=== PATIENT | female | born 1955 | race Caucasian/White ===

== ENCOUNTER 2016-11-11 11:03 | Inpatient (IN) | payer BC ==
[~2016-11-11] VITALS: Ht 172.7 cm; Wt 90.4 kg
[2016-11-21] MEDS ORDERED: ATOR40TA16 PO (09:59)
[2016-11-21] MEDS ORDERED: FERR240T PO (10:20)
[2016-11-21] MEDS ORDERED: COLA100C3 PO (10:20)
[2016-11-21] MEDS ORDERED: CLON1TAB PO (10:20)
[2016-11-21] MEDS ORDERED: AMIT50TA3 PO (10:20)
[2016-11-21] MEDS ORDERED: REGL10TA5 PO (10:20)
[2016-11-21] MEDS ORDERED: GABA100C4 PO ×2 (10:20)
[2016-11-21] MEDS ORDERED: HYDR-3583 PO (10:20)
[2016-11-21] MEDS ORDERED: ZANA4CAP PO (10:20)
[2016-11-21] MEDS ORDERED: RANI300T PO (10:20)
[2016-11-21] MEDS ORDERED: PLAQ200T PO (10:20)
[2016-11-21] MEDS ORDERED: LEXA20TA PO (10:20)
[2016-11-21] MEDS ORDERED: LISI-519 PO (10:20)
[2016-11-21] MEDS ORDERED: ASPI1TAB69 PO (13:08)
[2016-11-25 06:36] VITALS: BP 127/69; PULSE 79; RESP 20; TEMP 98.9; O2SAT 100
[2016-11-25] MEDS ORDERED: INSULIN HUMAN REGULAR 1,000 UNITS/10 ML VIAL SQ PRN (06:45)
[2016-11-25] MEDS ORDERED: EXPAREL PERI-ARTICULAR INJECTION (TOTAL VOL. 60 ML) P-ARTICULR SCH ×2 (06:45)
[2016-11-25] MEDS ORDERED: VANCOMYCIN 1000 MG/NS 250 ML (for <70 kg) IV SCH ×2 (06:45)
[2016-11-25] MEDS ORDERED: LACTATED RINGER'S 1000 ML IV SCH (06:45)
[2016-11-25] MEDS ORDERED: METOPROLOL TARTRATE 25 MG TAB PO PRN (06:45)
[2016-11-25] MEDS ORDERED: SODIUM CHLORID 0.9% 500 ML IV SCH (06:45)
[2016-11-25] MEDS: POVIDONE IODINE 7.5% SCRUB 118 ML BOTTLE TOP SCH (06:45)
[2016-11-25] MEDS ORDERED: TRANEXAMIC ACID INJ 857 MG in SODIUM CHLORIDE 0.9% INJ 100 ML IV SCH (07:00)
--- NOTE | 2016-11-25 07:21 | MH ---
cc: SCOT FOURNIER DATE OF ADMISSION: 11/25/2016 ADMISSION DIAGNOSIS Left knee osteoarthritis. HISTORY This is a 61-year-old female with significant left knee pain. Investigative studies show evidence of extensive arthritis of the left knee. Despite conservative care the patient is painful and symptomatic. She presents for surgical treatment. PAST MEDICAL HISTORY, SOCIAL HISTORY, FAMILY HISTORY, REVIEW OF SYSTEMS See attached notes. PHYSICAL EXAMINATION General: A 61-year-old female in moderate distress with her left knee. HEENT: Normocephalic, atraumatic. Pupils equal, round, reactive to light and accommodation. Extraocular motions intact. Neck: Supple. Chest: Clear. Heart: Regular rate and rhythm. Abdomen: Soft, nontender with normoactive bowel sounds. Musculoskeletal Examination: Left knee with pain range of motion especially with flexion and extension. Moderate deformity is seen. Neurologic and vascular examination is within normal limits. IMPRESSION Osteoarthritis left knee PLAN Left total knee replacement plasty CONSENT The risks of surgery include infection, bleeding, loss of motion, continued pain, need for further surgery, neurologic or vascular injury. The patient understands these issues and wishes to press on with the surgery as outlined above. MD LAMINE Platt/GREGORIA /10:45 PM /7:15 AM
[2016-11-25] MEDS ORDERED: GENTAMICIN SULFATE 80 MG/2 ML VIAL ONE (07:27)
[2016-11-25] MEDS ORDERED: MIDAZOLAM HCL 5 MG/5 ML VIAL ONE (07:37)
[2016-11-25] MEDS ORDERED: ceFAZolin 2 GM PREMIX 50 ML IV SCH (07:45)
[2016-11-25] MEDS: LACTATED RINGER'S 1000 ML INJ 1,000 ML IV SCH ×2 (10:06→20:58)
[2016-11-25] MEDS ORDERED: MISCELLANEOUS PHARMACY INFORMATION XX ONE (10:15)
[2016-11-25] MEDS ORDERED: TEMAZEPAM 15 MG CAP PO PRN (10:15)
[2016-11-25] MEDS ORDERED: MISCELLANEOUS NURSING INFORMATION XX PRN (10:15)
[2016-11-25] MEDS ORDERED: SODIUM CHLORIDE 0.9% FLUSH 5 ML FLUSH IVF PRN (10:15)
--- NOTE | 2016-11-25 10:31 | PD.OP ---
cc: Daryl Engle MD Operative Report Date of Surgery: Nov 25, 2016 Preoperative Diagnosis: Osteoarthritis left knee. Valgus deformity, left knee Postoperative Diagnosis: Same Procedure: Left total knee replacement arthroplasty Anesthesia: Spinal with block Surgeon: Daryl Engle Planer Tailer(s): BALBIR Gutierrez Operation and Findings: EBL: 150 cc INDICATION: This patient presents with long-standing arthritis of the knee. Attachment record documents conservative measures. The patient now presents for surgical treatment. NOTE: Jaycee Gutierrez PA-C was present for the entire surgical procedure as my farm assistant. In my medical opinion her skill and care was necessary for proper management of this patient. TOURNIQUET TIME: 54 minutes COMPANY: [employer] FEMUR: Size 3, cruciate retaining TIBIA: Size 3, fixed bearing PATELLA: 35 mm POLYETHYLENE INSERT: 11 mm PROCEDURE: This patient was brought the operating room and anesthetized in the supine position. The patient was positioned supine on the table. The tourniquet was placed about the thigh, and the leg was scrubbed with alcohol followed by Hibiclens followed by ChloraPrep and draped sterilely. A timeout was done, and antibiotics were given. After exsanguination the tourniquet was inflated to 250 mmHg. An anterior incision was made and a median parapatellar arthrotomy was performed. The patella was released laterally and subluxed allowing freehand cut of the patella which was then sized. A metal cap was placed over the exposed patellar surface for protection. A maritime pilot hole was placed in the distal femur allowing a 5 valgus cut removing 10 mm from the distal femur. Anterior posterior and chamfer cuts were made. The posterior stabilize osteotomy was made. The attention was directed to the tibia. Retractors were positioned. The external alignment guide was used allowing the lateral tibia to be used as referencing guide and cut utilizing an oscillating saw taking care to avoid any injury to the surrounding soft tissues. This was sized properly. Trial reduction showed that the insert fit nicely. The patient had range of motion extension 0 flexion 125. A medial release not necessary. The bony surfaces prepared. On the back table 2 packets of methylmethacrylate were mixed. The components were cemented. Excess cement was removed. The tourniquet let down and hemostasis was controlled. The final plastic insert was inserted. Range of motion was the same as previously noted. A drain was brought through a separate stab incision. The arthrotomy was repaired with interrupted #1 Vicryl suture, subcutaneous tissue 2-0 Vicryl suture and skin with metallic ruben A sterile dressing was applied. Sponge counts, needle counts and instrument counts were all correct. The patient tolerated procedure well and was taken to recovery in satisfactory condition. FINDINGS: There was evidence of severe lateral compartment arthritis with a valgus deformity. There was a significant erosion of the tibia posterior and laterally. The final solution had excellent balancing in flexion and extension. No complication was appreciated. Daryl Engle MD Nov 25, 2016 10:31
[2016-11-25] MEDS ORDERED: OXYC1TAB63 PO (10:33)
[2016-11-25] MEDS ORDERED: XARE10TA PO (10:33)
[2016-11-25] MEDS ORDERED: Post-op Orders (for Pharmacy) MISC XX ONE (10:35)
[2016-11-25] MEDS ORDERED: DO NOT ADM ANY ANTICOAGULANT DRUGS XX PRN (11:00)
[2016-11-25] MEDS ORDERED: *MEPERIDINE 25 MG INJ VIAL PERIprocedural Use ONLY ONE (11:00)
[2016-11-25] MEDS ORDERED: ROPIVACAINE 0.5% PF INJ 30 ML VIAL NB ONE (11:09)
[2016-11-25] MEDS ORDERED: DEXAMETHASONE SOD PHOS PF 10 MG/ML VIAL IV ONE (11:09)
--- NOTE | 2016-11-25 11:14 | RADRPT ---
EXAM DATE/TIME: 11/25/2016 10:47 [facility] COMPARISON: No previous studies available for comparison. INDICATIONS : Post op left knee replacement. MEDICAL HISTORY : None. SURGICAL HISTORY : None. ENCOUNTER: Initial ACUITY: 1 day PAIN SCORE: 0/10 LOCATION: Left knee. FINDINGS: AP and lateral views of the left knee demonstrate changes consistent with recent total knee arthropla sty with metallic hardware in place in the distal femur and proximal tibia. There is a radiolucent pa tellar component. Skin ruben are present anteriorly. There is soft tissue gas present, as expected. A surgical drain is in place. CONCLUSION: Expected postsurgical changes are present following total knee arthroplasty. Stephan Santos MD on November 25, 2016 at 11:12 Board Certified Radiologist. This report was verified electronically.
[2016-11-25 11:36] VITALS: BP 142/62; PULSE 67; RESP 19; TEMP 95.2; O2SAT 100
[2016-11-25] MEDS: oxyCODONE/ACETAMINOPHEN 5 MG/325 MG TAB PO PRN ×3 (11:38→23:53)
[2016-11-25] MEDS ORDERED: LACTATED RINGER'S 1000 ML INJ 1,000 ML IV ONE (12:22)
[2016-11-25] MEDS ORDERED: ONDANSETRON HCL 4 MG/2 ML VIAL IV PUSH ONE (12:22)
[2016-11-25] MEDS ORDERED: PROPOFOL 200 MG/20 ML AMP IV ONE (12:22)
[2016-11-25] MEDS ORDERED: CPMMACHINE (12:36)
[2016-11-25] MEDS ORDERED: WALKER WHEELS/F1 MIS (12:37)
[2016-11-25] MEDS ORDERED: MISC-163 (12:37)
--- NOTE | 2016-11-25 12:37 | HHI.DCPOC ---
Discharge Care Plan Diagnosis: (1) Left knee pain (2) Osteoarthritis of left knee Your Health Problems Are: Incision/Drains Goals to Promote Your Health * To prevent worsening of your condition and complications * To maintain your health at the optimal level Directions to Meet Your Goals Take your medications as prescribed Follow your dietary instruction Follow activity as directed Keep your appointments as scheduled Take your immunizations and boosters as scheduled If your symptoms worsen call your PCP, if no PCP go to Urgent Care Center or Emergency Room Smoking is Dangerous to Your Health. Avoid second hand smoke Call the 24-hour hour crisis hotline for domestic abuse at Rashida Champagne Nov 25, 2016 12:37
--- NOTE | 2016-11-25 12:38 | HHI.DS ---
Discharge Summary Admission Date Nov 25, 2016 at 05:38 Discharge Date: Nov 28, 2016 Admitting Diagnosis see below Diagnosis: (1) Left knee pain Diagnosis: Principal (2) Osteoarthritis of left knee Diagnosis: Principal (3) Postoperative anemia due to acute blood loss Diagnosis: Secondary Procedures Left total knee arthroplasty Brief History This is a 61 year old female patient with a multiple year history of left knee pain. She sought out medical treatment some time ago and imaging studies were performed. She was found to have moderate osteoarthritis of her left knee. Conservative measures were performed including use of medications, therapy and injections. She continued to decline so surgical treatment was recommended and she elected to move forward with total knee arthroplasty. Hospital Course Surgical treatment was performed on the day of admission without complications. She recovered well in PACU and was transferred to the orthopaedic floor. Pain was controlled with IV and oral medications. DVT prophylaxis was initiated pod#1. She was compliant with physical therapy and all precautions. She did have a slight hypotensive episode pod#1 but that resolved. After 3 days she was found to be stable with mild postop anemia and discharged to [facility] facility with instruction to continue PT and to pursue a high fiber diet for 5 days. Pt Condition on Discharge: Stable Discharge Disposition: Discharge to SNF Discharge Instructions Diet Instructions: As Tolerated, No Restrictions, High Fiber Diet Activities You Can Perform: Weight Bearing as [place] Activities to Avoid: Strenuous Activity Additional Activity Instruc.: TKA protocol New Medications: 3-in-1 Bedside Toilet (3-in-1 Bedside Toilet) 1 Mis Mis 1 EA .ROUTE DIRECTED #1 EA CPM-Continuous Passive Motion Machine (CPM-Continuous Passive Motion Machine) 1 Ea Device 1 EA .ROUTE DIRECTED #1 Ref 0 EA Walker with Front Wheels (Walker with Front Wheels) 1 Mis Mis 1 EA .ROUTE DIRECTED #1 Ref 0 EA Oxycodone-Acetaminophen (Oxycodone-Acetaminophen) 5-325 mg Tab 1 TAB PO Q4H PRN PAIN LESS THAN 5 ON SCALE #50 TAB Rivaroxaban (Xarelto) 10 Mg Tab 10 MG PO Q24H Prevent Blood Clot #15 TAB Continued Medications: Amitriptyline (Amitriptyline) 50 Mg Tab 50 MG PO HS Control Depression #30 Ref 0 TAB Aspirin (Aspirin) 81 Mg Tabdr 81 MG PO DAILY TAB Atorvastatin (Atorvastatin) 40 Mg Tab 40 MG PO DAILY Cholesterol Management #30 Ref 0 TAB Clonazepam (Clonazepam) 1 Mg Tab 1 MG PO TID #90 Ref 0 TAB Docusate Sodium (Colace) 100 Mg Cap 100 MG PO BID #60 Ref 0 CAP Escitalopram (Lexapro) 20 Mg Tab 20 MG PO DAILY #30 Ref 0 TAB Ferrous Gluconate (Ferrous Gluconate) 240 Mg Tab Unknown Dose PO BID Nutritional Supplement #30 Ref 0 TAB Gabapentin (Gabapentin) 100 Mg Cap 100 MG PO HS #30 Ref 0 CAP Gabapentin (Gabapentin) 100 Mg Cap 200 MG PO BID #60 Ref 0 CAP Hydrocodone-Acetaminophen (Hydrocodone-Acetaminophen) 10-325 mg Tab 1 TAB PO Q6H PRN PAIN Ref 0 TAB Hydroxychloroquine (Plaquenil) 200 Mg Tab Unknown Dose PO DAILY Take with food #60 Ref 0 TAB Lisinopril (Lisinopril) 5 Mg Tab 5 MG PO DAILY Blood Pressure Management #30 Ref 0 TAB Metoclopramide (Reglan) 10 Mg Tab 10 MG PO DAILY #120 Ref 0 TAB Ranitidine (Ranitidine) 300 Mg Tab 300 MG PO BID Heartburn Management #30 Ref 0 TAB Tizanidine (Zanaflex) 4 Mg Cap 4 MG PO TID Muscle Spasm Ref 0 CAP Rashida Champagne Nov 25, 2016 12:38
[2016-11-25] MEDS: clonazePAM 1 MG TAB PO SCH ×2 (13:02→18:17)
[2016-11-25] MEDS: MORPHINE SULFATE 8 MG/ML INJ IM PRN ×2 (14:10→21:09)
[2016-11-25 16:00] VITALS: BP 107/61; PULSE 79; RESP 16; TEMP 97.8; O2SAT 96
[2016-11-25 20:15] VITALS: BP 143/68; PULSE 76; RESP 19; TEMP 97.4; O2SAT 96
[2016-11-25] MEDS: FAMOTIDINE 20 MG TAB PO SCH (20:52)
[2016-11-25] MEDS: MAGNESIUM HYDROXIDE SUSP 30 ML CUP PO SCH (20:53)
[2016-11-25] MEDS: AMITRIPTYLINE HCL 50 MG TAB PO SCH (20:53)
[2016-11-25] MEDS: GABAPENTIN 100 MG CAP PO SCH (20:53)
[2016-11-25] MEDS: SENNOSIDES 8.6 MG TAB PO SCH (20:54)
[2016-11-25] MEDS: SODIUM CHLORIDE 0.9% FLUSH 5 ML FLUSH IVF SCH (20:55)
[2016-11-26] VITALS (8 sets, daily range): BP systolic 87–134; BP diastolic 45–85; PULSE 73–92; RESP 18–19; TEMP 95.8–98; O2SAT 93–98
[2016-11-26] MEDS: oxyCODONE/ACETAMINOPHEN 5 MG/325 MG TAB PO PRN ×5 (04:16→21:22)
[2016-11-26 07:01] LABS: HEMATOCRIT 26.6 % (35.0-46.0); REVIEW FLAG FINAL
--- NOTE | 2016-11-26 07:47 | PD.ORT.PN ---
Subjective Subjective Remarks Moderate left knee pain. Most sensation returned after block. Somehwat groggy. Mild nausea. No other complaints or concerns. No CP or SOB. Has no family support at home so likely SNF [postop. Objective Vitals Vital Signs Date Time Temp Pulse Resp B/P Pulse Ox O2 Delivery O2 Flow Rate FiO2 11/26/16 07:31 97.7 82 18 110/56 95 11/26/16 04:13 98.0 81 18 103/54 96 11/26/16 00:14 97.2 86 19 106/62 95 11/25/16 20:15 97.4 76 19 143/68 96 11/25/16 17:49 18 11/25/16 16:00 97.8 79 16 107/61 96 11/25/16 14:15 18 11/25/16 11:36 95.2 67 19 142/62 100 11/25/16 11:15 83 14 143/82 100 Nasal Cannula 2 11/25/16 11:00 71 14 129/85 99 Nasal Cannula 2 11/25/16 10:45 65 14 127/72 100 Nasal Cannula 2 11/25/16 10:33 97.4 64 12 119/59 100 Nasal Cannula 2 I/O 11/25/16 11/25/16 11/25/16 11/26/16 11/26/16 11/26/16 07:00 15:00 23:00 07:00 15:00 23:00 Intake Total 2240 ml 360 ml 360 ml Output Total 1885 ml 590 ml 1000 ml Balance 355 ml -230 ml -640 ml Intake Oral 240 ml 360 ml 360 ml IV Total 0 ml Other 2000 ml Output Urine Total 725 ml 400 ml 1000 ml Drainage Total 10 ml 190 ml Estimated Blood Loss 150 ml Other 1000 ml # Bowel Movements 0 0 0 Result Diagram: 11/26/16 0609 Procedures Left total knee arthroplasty Objective Remarks Laying in bed, CKS in place NAD LLE CKS in place, dressing c/d/i, drain in place, no obvious erythema mild swelling, thigh and calf supple neg homans +motor at, +sens, +nvi Assessment & Plan Ortho Post Op Day #: 1 Problem List: (1) Left knee pain (2) Osteoarthritis of left knee Assessment and Plan pod#1 s/p L TKA D/C left knee drain today. Hold incision dressing changes. Do not change unless saturated. No shoe fitter. Continue PO oxy/acet as needed. Zofran for nausea prn. Xarelto 10mg qd. PT - WBAT LLE. CPM bid as tolerated. D/C planning, likely snf thursday. DME written. Rashida Champagne Nov 26, 2016 07:47
[2016-11-26] MEDS: METOCLOPRAMIDE HCL 10 MG TAB PO SCH (08:17)
[2016-11-26] MEDS: GABAPENTIN 100 MG CAP PO SCH ×4 (08:18→21:20)
[2016-11-26] MEDS: ESCITALOPRAM OXALATE 20 MG TAB PO SCH (08:18)
[2016-11-26] MEDS: clonazePAM 1 MG TAB PO SCH ×3 (08:19→18:00)
[2016-11-26] MEDS: FAMOTIDINE 20 MG TAB PO SCH ×3 (08:20→21:20)
[2016-11-26] MEDS: LISINOPRIL 5 MG TAB PO SCH (08:20)
[2016-11-26] MEDS: ATORVASTATIN 40 MG TAB PO SCH (08:21)
[2016-11-26] MEDS: MAGNESIUM HYDROXIDE SUSP 30 ML CUP PO SCH ×2 (08:23→21:19)
[2016-11-26] MEDS: SODIUM CHLORIDE 0.9% FLUSH 5 ML FLUSH IVF SCH ×2 (08:25→21:00)
[2016-11-26] MEDS: RIVAROXABAN 10 MG TAB PO SCH (09:43)
[2016-11-26] MEDS ORDERED: INFLUENZA VIRUS VACCINE (QUADRIVALENT) 0.5 ML SYR IM ONE (10:00)
[2016-11-26] MEDS ORDERED: SODIUM CHLOR 0.9% 250 ML INJ 250 ML IV STA (12:59)
[2016-11-26] MEDS: AMITRIPTYLINE HCL 50 MG TAB PO SCH ×2 (21:00→21:20)
[2016-11-26] MEDS: SENNOSIDES 8.6 MG TAB PO SCH (21:21)
[2016-11-27 00:24] VITALS: BP 141/67; PULSE 114; RESP 18; TEMP 98.8; O2SAT 92
[2016-11-27] MEDS: oxyCODONE/ACETAMINOPHEN 5 MG/325 MG TAB PO PRN ×6 (01:38→21:46)
[2016-11-27 04:19] VITALS: BP 136/75; PULSE 101; RESP 19; TEMP 100.2; O2SAT 92
[2016-11-27] MEDS: POVIDONE IODINE 7.5% SCRUB 118 ML BOTTLE TOP SCH (06:45)
[2016-11-27 08:00] VITALS: BP 128/58; PULSE 105; RESP 18; TEMP 95.3; O2SAT 96
[2016-11-27] MEDS: LACTATED RINGER'S 1000 ML INJ 1,000 ML IV SCH (08:34)
[2016-11-27] MEDS: METOCLOPRAMIDE HCL 10 MG TAB PO SCH (08:44)
[2016-11-27] MEDS: SODIUM CHLORIDE 0.9% FLUSH 5 ML FLUSH IVF SCH ×2 (08:45→20:14)
[2016-11-27] MEDS: GABAPENTIN 100 MG CAP PO SCH ×4 (09:00→21:48)
[2016-11-27] MEDS: LISINOPRIL 5 MG TAB PO SCH (09:00)
[2016-11-27] MEDS: clonazePAM 1 MG TAB PO SCH ×3 (09:00→17:28)
[2016-11-27] MEDS: FAMOTIDINE 20 MG TAB PO SCH ×2 (09:00→20:14)
[2016-11-27] MEDS: ATORVASTATIN 40 MG TAB PO SCH (09:00)
[2016-11-27] MEDS: ESCITALOPRAM OXALATE 20 MG TAB PO SCH (09:00)
--- NOTE | 2016-11-27 10:07 | PD.ORT.PN ---
Subjective Subjective Remarks Still experiencing moderate left knee pain but now having occasional spasms now that block has worn off. Much less grogginess. Nausea 'mostly' resolved. Episode of lightheadedness yesterday, resolved. No other complaints or concerns. No CP or SOB. Planning on SNF tomorrow. Objective Vitals Vital Signs Date Time Temp Pulse Resp B/P Pulse Ox O2 Delivery O2 Flow Rate FiO2 11/27/16 08:00 95.3 105 18 128/58 96 11/27/16 07:32 Room Air 11/27/16 04:19 100.2 101 19 136/75 92 11/27/16 00:24 98.8 114 18 141/67 92 11/26/16 22:22 20 11/26/16 20:31 96.6 92 18 134/66 93 11/26/16 19:00 20 11/26/16 16:00 95.8 80 18 95/53 98 11/26/16 13:30 87 119/85 11/26/16 12:00 96.7 73 18 87/45 96 I/O 11/26/16 11/26/16 11/26/16 11/27/16 11/27/16 11/27/16 07:00 15:00 23:00 07:00 15:00 23:00 Intake Total 360 ml 39969 ml 480 ml 240 ml Output Total 1080 ml 60 ml Balance -720 ml 9946 ml 480 ml 240 ml Intake Oral 360 ml 480 ml 240 ml IV Total 05612 ml Output Urine Total 1000 ml Drainage Total 80 ml 60 ml # Voids 1 3 # Bowel Movements 0 0 0 Result Diagram: 11/26/16 0609 Procedures Left total knee arthroplasty Objective Remarks Sitting up in bed, No CKS in place NAD LLE CKS removed, drain removed and site clean, little drainage, no erythema moderate swelling knee, thigh and calf supple neg homans +motor at (4/5), +sens, +nvi Assessment & Plan Ortho Post Op Day #: 2 Problem List: (1) Left knee pain (2) Osteoarthritis of left knee Assessment and Plan pod#2 s/p L TKA Hypotensive yesterday but last 3 BPs stable. PO pain meds as needed. Encouraged hydration and IS. Hold incision dressing changes. Do not change unless saturated. Xarelto 10mg qd. PT - WBAT LLE. CPM bid as tolerated. D/C planning, likely snf tomorrow. DME written. Rashida Champagne Nov 27, 2016 10:07
[2016-11-27 12:00] VITALS: BP 142/63; PULSE 84; RESP 18; TEMP 96.2; O2SAT 98
[2016-11-27] MEDS: RIVAROXABAN 10 MG TAB PO SCH (12:55)
[2016-11-27] MEDS: MAGNESIUM HYDROXIDE SUSP 30 ML CUP PO SCH ×2 (12:56→20:14)
[2016-11-27 16:11] VITALS: BP 109/52; PULSE 83; RESP 18; TEMP 97.7; O2SAT 94
[2016-11-27 20:00] VITALS: BP 113/61; PULSE 81; RESP 18; TEMP 98; O2SAT 96
[2016-11-27] MEDS: AMITRIPTYLINE HCL 50 MG TAB PO SCH ×2 (20:14→21:47)
[2016-11-27] MEDS: SENNOSIDES 8.6 MG TAB PO SCH (20:14)
[2016-11-28] VITALS (8 sets, daily range): BP systolic 80–157; BP diastolic 50–84; PULSE 75–98; RESP 14–18; TEMP 96.8–98.9; O2SAT 95–96
[2016-11-28] MEDS: LACTATED RINGER'S 1000 ML INJ 1,000 ML IV SCH ×2 (00:36→13:06)
[2016-11-28] MEDS: oxyCODONE/ACETAMINOPHEN 5 MG/325 MG TAB PO PRN ×4 (01:56→14:17)
[2016-11-28 06:06] LABS: HEMATOCRIT 25.7 % (35.0-46.0); REVIEW FLAG FINAL
--- NOTE | 2016-11-28 07:52 | PD.ORT.PN ---
Subjective Subjective Remarks Continues to have significant left knee pain. Very tentative to move knee because of pain. No new lightheadedness. No other complaints or concerns. No CP or SOB. Planning on SNF today but still has questions about locations, cost , etc. Objective Vitals Vital Signs Date Time Temp Pulse Resp B/P Pulse Ox O2 Delivery O2 Flow Rate FiO2 11/28/16 00:00 97.4 86 18 111/60 95 11/27/16 20:00 98.0 81 18 113/61 96 11/27/16 16:11 97.7 83 18 109/52 94 11/27/16 12:00 96.2 84 18 142/63 98 11/27/16 08:00 95.3 105 18 128/58 96 I/O 11/27/16 11/27/16 11/27/16 11/28/16 11/28/16 11/28/16 07:00 15:00 23:00 07:00 15:00 23:00 Intake Total 240 ml 600 ml 480 ml 240 ml Balance 240 ml 600 ml 480 ml 240 ml Intake Oral 240 ml 600 ml 480 ml 240 ml # Voids 3 4 3 2 # Bowel Movements 0 0 0 0 Result Diagram: 11/28/16 0547 Procedures Left total knee arthroplasty Objective Remarks Laying in bed, No CKS in place NAD, anxious personality LLE CKS removed, drain removed and site clean, no new drainage, no erythema moderate swelling knee, thigh and calf supple neg homans +motor at (4/5), +sens, +nvi Assessment & Plan Ortho Post Op Day #: 3 Problem List: (1) Left knee pain (2) Osteoarthritis of left knee Assessment and Plan pod#3 s/p L TKA Ok to d/c to SNF today. CM to discuss detail before discharge. Pt has many questions. PT before she leaves today. WBAT LLE. CKS in bed. CPM BID as tolerated. PO pain meds as needed. Mild postop anemia - Encouraged hydration and IS. Hold incision dressing changes. Do not change unless saturated. Xarelto 10mg qd. F/U in 2 weeks as scheduled. DME written. Rashida Champagne Nov 28, 2016 07:52
[2016-11-28] MEDS: ESCITALOPRAM OXALATE 20 MG TAB PO SCH (08:04)
[2016-11-28] MEDS: ATORVASTATIN 40 MG TAB PO SCH (08:04)
[2016-11-28] MEDS: clonazePAM 1 MG TAB PO SCH ×3 (08:04→18:00)
[2016-11-28] MEDS: FAMOTIDINE 20 MG TAB PO SCH (08:04)
[2016-11-28] MEDS: RIVAROXABAN 10 MG TAB PO SCH (08:05)
[2016-11-28] MEDS: METOCLOPRAMIDE HCL 10 MG TAB PO SCH (08:05)
[2016-11-28] MEDS: LISINOPRIL 5 MG TAB PO SCH (08:05)
[2016-11-28] MEDS: MAGNESIUM HYDROXIDE SUSP 30 ML CUP PO SCH (08:06)
[2016-11-28] MEDS: SODIUM CHLORIDE 0.9% FLUSH 5 ML FLUSH IVF SCH (08:16)
[2016-11-28] MEDS: GABAPENTIN 100 MG CAP PO SCH ×2 (08:17→13:00)
== END 2016-11-28 18:55 | DRG 470 ==
LOC: HSDI 11-25 05:38 → N06B 11-25 11:26
PROVIDERS: ADMIT Orthopaedic Surgery Orthopaedic Surgery of the Spine; ATTEND Orthopaedic Surgery Orthopaedic Surgery of the Spine
PROC: 3E0T3CZ (ICD-10-PCS; 2016-11-25)
PROC: 0SRD0J9 Replacement of Left Knee Joint with Synthetic Substitute, Cemented, Open Approach (ICD-10-PCS; principal; 2016-11-25 07:59)
DX: M17.12 Unilateral primary osteoarthritis, left knee (principal); I95.9 Hypotension, unspecified; D62 Acute posthemorrhagic anemia; M21.062 Valgus deformity, not elsewhere classified, left knee; E78.5 Hyperlipidemia, unspecified; K21.9 Gastro-esophageal reflux disease without esophagitis; F41.8 Other specified anxiety disorders; Z85.41 Personal history of malignant neoplasm of cervix uteri; Z87.891 Personal history of nicotine dependence
CPT/HCPCS: 73560; 85014; 85018; 86850; 86890; 86900; 86901; 86920; 88305; 88312; 94150; C1776; C9290; J0690; J1100; J1580; J2175; J2250; J2270; J2405; J2795; J3370; J7050; J7120; L1830

== ENCOUNTER → 2016-11-21 | Outpatient (CLI) | payer BC ==
[~2016-11-21] MED LIST: AMIT25TA20 PO; AMIT50TA3 PO; ASPI1TAB69 PO; ATOR40TA16 PO; CARI350T19 PO; CLON.5 PO; CLON1TAB PO; COLA100C3 PO; CPMMACHINE; CYCL-36 PO; FERR240T PO; GABA100C4 PO; HYDR-3583 PO; LEXA20TA PO; LISI-519 PO; LORTA5 PO; MISC-163; OXYC1TAB63 PO; PLAQ200T PO; RANI300T PO; REGL10TA5 PO; WALKER WHEELS/F1 MIS; XARE10TA PO; ZANA4CAP PO
== END ==
LOC: CPRE 08:52
PROVIDERS: ATTEND Orthopaedic Surgery Orthopaedic Surgery of the Spine
DX: Z01.818 Encounter for other preprocedural examination (principal); M17.12 Unilateral primary osteoarthritis, left knee